=== PATIENT | female | born 1950 | race African-American/Black ===

== ENCOUNTER 2017-08-21 22:51 | Inpatient (IN) | payer MEDICARE, OTHER ==
[~2017-08-21] VITALS: Ht 167.6 cm; Wt 132.0 kg
--- NOTE | ~2017-08-21 | EKG ---
[address] [place] [address] ELECTROCARDIOGRAM REPORT Name: BRENDEN EUBANKS Room #: 244-P ADM IN M.R.#: [id number] Admission: 08/22/17 Attend Phys: Ab Wood DO Discharge: Date of : 48 Report #: [id number] THIS REPORT FOR: //name// [facility] ED Test Date: 2017-08-22 Test Time: 00:03:47 Pat Name: BRENDEN EUBANKS Department: Room: [facility] Gender: F [employer]: MZOOK : 1950 Requested By: Vinayak Magaña Order Number: [id number] MD: Dane Merida Measurements Intervals [place] Rate: 90 P: -1 [place]: 153 QRS: -20 QRSD: 96 T: 38 QT: 352 QTc: 431 Interpretive Statements Sinus rhythm No significant abnormality Compared to ECG 05/18/2016 14:56:10 Ventricular premature complex(es) no longer present Electronically Signed On 08-22-2017 8:19:30 CDT by Dane Merida [email or web address] <ELECTRONICALLY SIGNED> By: Dane Merida MD, [facility] 08/22/17 0819 0003 0003 Dane Meirda MD, FACC /EPI
[~2017-08-21 22:51] MED LIST: ACETAMINOPHEN325 M1; AFLURIA 2045 MCG/0.4; AVELOX 400 MG400 MG; BENICAR20 MG PO; BENICAR40 MG PO; LEVOTHYROXIN0.025 MG PO; MAXZIDE 75-501 EACH PO; MUCINEX600 MG; PNEUMOVAX25 MCG/0.5; PREDNISONE 10 M10 M1; TRIAMTERENE-HC1 EAC3 PO; VENTOLIN HFA INH8 GM; VITAMIN B-12500 MCG PO
[2017-08-21 22:56] VITALS: BP 136/83
[2017-08-22] VITALS (12 sets, daily range): BP systolic 100–130; BP diastolic 67–87
[2017-08-22 00:21] LABS: BASOPHILS 0.4 % (0.0-2.0); HEMATOCRIT 43.4 % (37.0-47.0); HEMOGLOBIN 14.7 gm/dL (12.0-15.0); LYMPHOCYTES 23.5 % (24.0-44.0); MCH 30.6 pg (26.0-34.0); MCHC 33.9 g/dL (28.0-37.0); MCV 90.2 fL (80.0-100.0); MONOCYTES 9.2 % (1.0-8.0); PLATELET COUNT 318 thou/uL (150-400); POLYS 65.9 % (36.0-66.0); RBC 4.82 mil/uL (4.20-5.00); RDW 13.4 % (10.5-14.5); WBC 12.1 thou/uL (4.0-11.0)
[2017-08-22 00:25] LABS: MANUAL DIFF NO
[2017-08-22 00:28] LABS: CREATININE 1.4 mg/dL (0.6-1.0); POTASSIUM 3.5 mmol/L (3.5-5.1)
[2017-08-22 00:33] LABS: CALCIUM 9.1 mg/dL (8.5-10.1)
[2017-08-23] VITALS (10 sets, daily range): BP systolic 104–144; BP diastolic 62–90
[2017-08-23] MEDS ORDERED: MEDROL DOSPAK21 TA1 PO (09:26)
[2017-08-23] MEDS ORDERED: EPIPEN 2-P0.3 MG/0.3 IM (09:27)
[2017-08-23] MEDS ORDERED: BENADRYL25 MG PO (09:28)
== END 2017-08-23 10:36 | disposition home or self-care (01) | DRG 916 ==
LOC: ER 22:51 → EROBS 08-22 01:07 → ICU 08-22 01:07
PROVIDERS: Emergency Medicine
DX: T78.2XXA Anaphylactic shock, unspecified, initial encounter (principal); N17.9 Acute kidney failure, unspecified; R06.03 Acute respiratory distress; E03.9 Hypothyroidism, unspecified; R21 Rash and other nonspecific skin eruption; I10 Essential (primary) hypertension; Z90.710 Acquired absence of both cervix and uterus; Z98.51 Tubal ligation status; Z82.49 Family history of ischemic heart disease and other diseases of the circulatory system; Z80.9 Family history of malignant neoplasm, unspecified
CPT/HCPCS: 10078

== ENCOUNTER → 2021-12-04 | Outpatient (CLI) | payer MEDICARE, OTHER ==
[~2021-12-04] MED LIST changes: +BENADRYL25 MG PO; +EPIPEN 2-P0.3 MG/0.3 IM; +MEDROL DOSPAK21 TA1 PO
== END ==
LOC: SJCVCIMAG 08:37
PROVIDERS: ATTEND Internal Medicine Cardiovascular Disease
DX: R07.9 Chest pain, unspecified (principal); I10 Essential (primary) hypertension; I49.1 Atrial premature depolarization; Z88.8 Allergy status to other drugs, medicaments and biological substances; Z79.899 Other long term (current) drug therapy